=== PATIENT | male | born 1945 | race Caucasian/White ===

== ENCOUNTER 2020-03-30 07:00 | Outpatient (CLI) | payer MEDICARE | END 2020-03-30 23:59 | disposition home or self-care (01) | LOC: LAB.R 07:00 | PROVIDERS: ATTEND Family Medicine | DX: R05 Cough (principal) ==

== ENCOUNTER → 2020-07-19 | Outpatient (CLI) | payer MEDICARE | LOC: LAB.R 08:00 | PROVIDERS: ATTEND Family Medicine | DX: D64.9 Anemia, unspecified (principal) | CPT/HCPCS: 82274 ==

== ENCOUNTER 2020-08-07 18:40 | Outpatient (CLI) | payer MEDICARE | END 2020-08-07 18:41 | disposition short-term general hospital (02) | LOC: EMS 18:40 | PROVIDERS: ATTEND Surgery | DX: I49.9 Cardiac arrhythmia, unspecified (principal) | CPT/HCPCS: A0425; A0427 ==

== ENCOUNTER 2020-08-17 15:25 | Outpatient (CLI) | payer MEDICARE | END 2020-08-17 15:26 | disposition home or self-care (01) | LOC: RT 15:25 | PROVIDERS: ATTEND Family Medicine | DX: R06.02 Shortness of breath (principal) | CPT/HCPCS: 94060 ==

== ENCOUNTER 2020-10-13 16:18 | Outpatient (CLI) | payer MEDICARE ==
--- NOTE | 2020-10-13 17:27 | XRAY Report ---
PROCEDURE: Chest 1 View X-Ray INDICATIONS: CHEST PAIN TECHNIQUE: One view of the chest was acquired. COMPARISON: Chest x-ray 10/14/2015 FINDINGS: Surgical changes and devices: Pacemaker is unchanged. Lungs and pleura: Minimal blunting of the costophrenic angles bilaterally. Mediastinum: Mediastinal contours appear normal. Heart size is enlarged. Bones and chest wall: No suspicious bony lesions. Overlying soft tissues appear unremarkable. IMPRESSION: Minimal bilateral costophrenic angle blunting possibly related to trace effusions. Reviewed by: Silke Valle MD on 10/13/2020 5:26 PM [facility] Approved by: Silke Valle MD on 10/13/2020 5:26 PM [facility] Station ID: [id number]
--- NOTE | 2020-10-13 17:29 | XRAY Report ---
PROCEDURE: Ribs 2 View RT INDICATIONS: CHEST PAIN TECHNIQUE: 2 views of the right ribs were acquired. COMPARISON: Chest x-ray 10/21/2015 FINDINGS: Surgical changes and devices: None. Bones and chest wall: Minimally displaced lateral right 11th rib. No suspicious bony lesions. [place] ing soft tissues appear unremarkable. Lungs and pleura: The visualized lung appears clear. No pleural effusions or pneumothorax are visib le. IMPRESSION: Minimally displaced lateral right 11th rib. Reviewed by: Silke Valle MD on 10/13/2020 5:28 PM PST Approved by: Silke Valle MD on 10/13/2020 5:28 PM PST Station ID: [id number]
--- NOTE | 2020-10-13 17:30 | XRAY Report ---
PROCEDURE: Abdomen 2 View X-Ray INDICATIONS: ABDOMINAL PAIN TECHNIQUE: 1 view of the abdomen were acquired. COMPARISON: Rib x-ray 10/13/2020 FINDINGS: Surgical changes and devices: None. Bowel: No pneumoperitoneum. The bowel gas pattern is normal. Moderate colonic stool. Soft tissues: No masses; visualized solid organ contours appear normal in size. No suspicious abdom inal calcifications. Bones: No suspicious bony abnormalities. Lateral right minimally displaced 11th rib fracture. IMPRESSION: Lateral right minimally displaced 11th rib fracture, better appreciated on rib series x- ray of 10/13/2020. Reviewed by: Silke Valle MD on 10/13/2020 5:29 PM PST Approved by: Silke Valle MD on 10/13/2020 5:29 PM [facility] Station ID: [id number]
== END 2020-10-13 23:59 | disposition home or self-care (01) ==
LOC: DI.N 16:18
PROVIDERS: ATTEND Family Medicine
DX: R07.89 Other chest pain (principal); S22.31XA Fracture of one rib, right side, initial encounter for closed fracture

== ENCOUNTER 2020-11-02 08:00 | Outpatient (CLI) | payer MEDICARE ==
[2020-11-02 21:02] LABS: HGB - HEMOGLOBIN 11.1 g/dL (14.0-18.0); MEAN CORPUSCULAR HEMOGLOBIN 34.2 pg (27.0-31.0); MEAN CORPUSCULAR HGB CONC 31.3 g/dL (32.0-36.0); MEAN CORPUSCULAR VOLUME 109.2 fL (80.0-94.0); RED BLOOD COUNT 3.25 10^6/uL (4.70-6.10); WHITE BLOOD COUNT 4.8 x10^3/uL (4.8-10.8)
[2020-11-02 21:09] LABS: CALCIUM 9.1 mg/dL (8.5-10.3); CREATININE 1.2 mg/dL (0.6-1.2)
== END 2020-11-02 23:59 | disposition home or self-care (01) ==
LOC: LAB.N 08:00
PROVIDERS: ATTEND Nurse Practitioner
DX: R06.02 Shortness of breath (principal); R60.0 Localized edema; Z20.822 Contact with and (suspected) exposure to COVID-19
CPT/HCPCS: 36415; 80048; 83880; 85027; U0004; 85025

== ENCOUNTER 2020-11-02 17:16 | Outpatient (CLI) | payer MEDICARE ==
--- NOTE | 2020-11-03 15:25 | XRAY Report ---
PROCEDURE: Chest 2 View X-Ray INDICATIONS: SHORTNESS OF BREATH TECHNIQUE: 2 view(s) of the chest. COMPARISON: Chest x-ray 10/13/2020 FINDINGS: Surgical changes and devices: None. Lungs and pleura: There is minimal to mild blunting of the costophrenic angles bilaterally, left grea ter than right. Mediastinum: Mediastinal contours are normal. Heart size is enlarged. Bones and chest wall: No suspicious bony abnormalities. Soft tissues appear unremarkable. IMPRESSION: Minimal to mild bilateral effusions, left greater than right. Reviewed by: Silke Valle MD on 11/03/2020 3:23 PM [facility] Approved by: Silke Valle MD on 11/03/2020 3:23 PM PST Station ID: [id number]
== END 2020-11-02 23:59 | disposition home or self-care (01) ==
LOC: DI.N 17:16
PROVIDERS: ATTEND Nurse Practitioner
DX: R06.02 Shortness of breath (principal); J90 Pleural effusion, not elsewhere classified

== ENCOUNTER 2020-11-03 10:46 | Emergency (ER) | payer MEDICARE ==
[2020-11-03] MEDS ORDERED: FUROSEMIDE 40 MG/4 ML VIAL IVP STA (11:22)
--- NOTE | 2020-11-03 11:25 | ED Physician Documentation ---
History of Present Illness - Stated complaint Stated Complaint: R ANKLE WOUND - Chief complaint Chief Complaint: General - History obtained from History obtained from: Patient - History of Present Illness Timing: Other (2 months.) - Additonal information Additional information: 75-year-old male with a pacer in place and on flecainide for atrial fibrillation with pauses as developed increasing exertional dyspnea over the past 2 months.He has been seen by his primary care doctor for the swelling in his legs and he was sent to the emergency department for further evaluation. He was asked to come last night but the patient had refused today they have gotten labs back saying his BNP was elevated over thousand. They have encouraged the patient to come to the emergency department and he has come here with the chief complaint of ankle swelling and now they are weeping fluid as well as exertional dyspnea that has progressively worsened over 2 months. Of time. He is able to walk about 25 feet before getting short of breath.The patient denies illness otherwise stating that he is not coughing anything up he has not had a fever. Review of Systems Constitutional: denies: Fever, Chills, Myalgias Eyes: denies: Decreased vision Ears: denies: Ear pain Nose: denies: Rhinorrhea / runny nose, Congestion Throat: denies: Sore throat Cardiac: reports: Pedal edema. denies: Chest pain / pressure, Palpitations Respiratory: reports: Dyspnea. denies: Cough GI: reports: Abdominal Swelling (in the am). denies: Nausea, Vomiting, Constipation, Diarrhea : denies: Dysuria, Frequency Skin: denies: Rash Musculoskeletal: reports: Extremity swelling. denies: Neck pain, Back pain, Extremity pain Neurologic: denies: Generalized weakness, Focal weakness, Numbness PD PAST MEDICAL HISTORY - Past Medical History Cardiovascular: Hypertension, High cholesterol, Peripheral Vascular Disease, Angina, Atrial fibrillation Endocrine/Autoimmune: HyPOthyroidism : Benign prostate hypertrophy, Kidney stones - Past Surgical History General: Colonoscopy - Present Medications Home Medications: Ambulatory Orders Medication Instructions Recorded Confirmed Flecainide Acetate [Tambocor] 50 mg PO BID 04/28/13 11/03/20 Levothyroxine [Synthroid] 125 mcg PO QDAC 04/28/13 11/03/20 Multivitamin [Multivitamins] 1 each PO DAILY 04/28/13 11/03/20 Simvastatin [Zocor] 20 mg PO DAILY 04/28/13 11/03/20 Azithromycin [Zithromax] 250 mg PO DAILY 11/03/20 11/03/20 Fluticasone/Salmeterol [Advair Hfa 12 gm IH BID 11/03/20 11/03/20 115-21 Mcg Inhaler] Furosemide [Lasix] 40 mg PO DAILY 11/03/20 11/03/20 Metoprolol Succinate [Toprol Xl] 200 mg PO DAILY 11/03/20 11/03/20 Naproxen [EC-Naproxen] 500 mg PO BID 11/03/20 11/03/20 Potassium Chloride 10 meq PO DAILY PM #20 tab 11/03/20 clonazePAM [Clonazepam] 0.5 mg PO TID 11/03/20 11/03/20 - Allergies Allergies/Adverse Reactions: Allergies Allergy/AdvReac Type Severity Reaction Status Date / Time No Known Drug Allergies Allergy Verified 11/03/20 11:05 - Social History Does the pt smoke?: No Smoking Status: Never smoker Does the pt drink ETOH?: Yes Does the pt have substance abuse?: No - Immunizations Immunizations are current?: Yes PD ED PE NORMAL - Vitals Vital signs reviewed: Yes (normal ) - General General: Alert and oriented X 3, No acute distress, Well developed/nourished - HEENT HEENT: Atraumatic, PERRL, EOMI - Neck Neck: Supple, no meningeal sign, No bony TTP - Cardiac Cardiac: RRR, No murmur, Other (distant heart sounds regular rate. ) - Respiratory Respiratory: No respiratory distress, Clear bilaterally - Abdomen Abdomen: Soft, Non tender - Back Back: No CVA TTP, No spinal TTP - Derm Derm: Normal color, Warm and dry - Extremities Extremities: No deformity, Other (There is pitting edema to the LE bilaterally with excoriations especially to the left calf. There are currently no open draining areas. There is currently no weeping ) - Neuro Neuro: Alert and oriented X 3, vehicle body sander 2-12 intact, No motor deficit, No sensory deficit, Normal speech Eye Opening: Spontaneous Motor: Obeys Commands Verbal: Oriented GCS Score: 15 - Psych Psych: Normal mood, Normal affect Results - Vitals Vitals: Vital Signs - 24 hr 11/03/20 11/03/20 11/03/20 11:02 11:32 14:12 Temperature 36.8 C Heart Rate 60 60 60 Respiratory 20 15 22 Rate Blood Pressure 125/74 165/94 H 141/61 H O2 Saturation 97 97 93 Oxygen O2 Source Room air - EKG (time done) 1124 Rate: Rate (enter#) (60) Rhythm: Paced Compare to prior EKG: Old EKG unavailable Computer interpretation: Agree with computer - Labs Labs: Laboratory Tests 11/03/20 11/03/20 11/03/20 11:30 11:30 11:30 WBC 4.6 L RBC 3.14 L Hgb 10.8 L Hct 33.6 L MCV 107.0 H MCH 34.4 H MCHC 32.1 RDW 15.2 H Plt Count 148 MPV 9.9 Neut # (Auto) 3.5 Lymph # (Auto) 0.5 L [place] # (Auto) 0.5 Eos # (Auto) 0.1 Baso # (Auto) 0.0 Absolute Nucleated RBC 0.00 Nucleated RBC % 0.0 Sodium 143 Potassium 4.7 Chloride 109 Carbon Dioxide 25 Anion Gap 9.0 BUN 31 H Creatinine 1.3 H Estimated GFR (MDRD) 54 L Glucose 101 H Calcium 9.2 Total Bilirubin 1.0 AST 21 ALT 25 Alkaline Phosphatase 56 Troponin I High Sens B-Natriuretic Peptide 1066 H Total Protein 5.7 L Albumin 3.6 Globulin 2.1 Albumin/Globulin Ratio 1.7 Lipase 40 Urine Color Urine Clarity Urine pH Ur Specific [place] Urine Protein Urine Glucose (UA) Urine Ketones Urine Occult Blood Urine Nitrite Urine Bilirubin Urine Urobilinogen Ur Leukocyte Esterase Ur Microscopic Review Urine Culture Comments 11/03/20 11/03/20 11:30 12:20 WBC RBC Hgb Hct MCV MCH MCHC RDW Plt Count MPV Neut # (Auto) Lymph # (Auto) [place] # (Auto) Eos # (Auto) Baso # (Auto) Absolute Nucleated RBC Nucleated RBC % Sodium Potassium Chloride Carbon Dioxide Anion Gap BUN Creatinine Estimated GFR (MDRD) Glucose Calcium Total Bilirubin AST ALT Alkaline Phosphatase Troponin I High Sens 6.0 B-Natriuretic Peptide Total Protein Albumin Globulin Albumin/Globulin Ratio Lipase Urine Color YELLOW Urine Clarity CLEAR Urine pH 5.5 Ur Specific [place] 1.020 Urine Protein NEGATIVE Urine Glucose (UA) NEGATIVE Urine Ketones NEGATIVE Urine Occult Blood NEGATIVE Urine Nitrite NEGATIVE Urine Bilirubin NEGATIVE Urine Urobilinogen 0.2 (NORMAL) Ur Leukocyte Esterase NEGATIVE Ur Microscopic Review NOT INDICATED Urine Culture Comments NOT INDICATED - Rads (name of study) chest Radiology: Prelim report reviewed (Impression: Stable appearance of minimal effusions and cardiomegaly. Increased vascular suggestive of edema is prominent cmpared to prior exam. ), EMP read indepedently, See rad report Procedures - IVC sono (time) 1118 Bedside IVC sono: IVC measures (cm) (2.01), IVC collapsed c insp (cm) (2.01), High CVP, Fluid overload PD MEDICAL DECISION MAKING - ED course Complexity details: reviewed old records, reviewed results, re-evaluated patient, considered differential, d/w patient ED course: 75-year-old male with a pacer in place and a history of atrial fibrillation has acute congestive heart failure and he is administered Lasix 40 mg intravenously. I think it is CHF. He does not have ischemia and he responds to diuresis with improvement in breathing and seeing his ankles. He has a script for lasix and I have encouraged him to take this daily and I will provide a corresponding script for some potassium. He will need a follow up in the next week to determine the continued need for the lasix. I suspect he will need this periodically. His diagnostics today were concerning for CHF and there is nothing overwhelming about this to trigger admission. Departure - Departure Disposition: 01 Home, Self Care Clinical Impression: Congestive heart disease Qualifiers: Heart failure type: unspecified Heart failure chronicity: acute Qualified Code(s): I50.9 - Heart failure, unspecified Condition: Stable Instructions: ED CHF General Follow-Up: To Graff MD [Primary Care Provider] - Prescriptions: Potassium Chloride 10 meq PO DAILY PM #20 tab Comments: Today it appears the swelling to your ankles is related to congestive heart failure and it appears you have responded to treatment with the diuretic furosemide. The recommendation is to continue the furosemide daily and in addition take a dose of potassium with each Lasix. You will need to follow-up with your primary care doctor in about 1 week. The expectation is improvement in leg swelling and improvement in your breathing day by day. You will likely need more lasix or your may need to take this intermittently.
[2020-11-03 11:34] LABS: BASOPHILS % (AUTO) 0.9 %; EOSINOPHILS # (AUTO) 0.1 10^3/uL (0.0-0.7); EOSINOPHILS % (AUTO) 1.7 %; HGB - HEMOGLOBIN 10.8 g/dL (14.0-18.0); LYMPHOCYTES # (AUTO) 0.5 10^3/uL (1.5-3.5); LYMPHOCYTES % (AUTO) 11.2 %; MEAN CORPUSCULAR HEMOGLOBIN 34.4 pg (27.0-31.0); MEAN CORPUSCULAR HGB CONC 32.1 g/dL (32.0-36.0); MEAN PLATELET VOLUME 9.9 fL (7.4-11.4); MONOCYTES # (AUTO) 0.5 10^3/uL (0.0-1.0); MONOCYTES % (AUTO) 10.3 %; NEUTROPHILS # (AUTO) 3.5 10^3/uL (1.5-6.6); NEUTROPHILS % (AUTO) 75.5 %; PLT - PLATELET COUNT 148 10^3/uL (130-450); RED BLOOD COUNT 3.14 10^6/uL (4.70-6.10); RED CELL DISTRIBUTION WIDTH 15.2 % (12.0-15.0); WHITE BLOOD COUNT 4.6 x10^3/uL (4.8-10.8)
[2020-11-03 12:00] LABS: ALBUMIN 3.6 g/dL (3.2-5.5); ALBUMIN/GLOBULIN RATIO 1.7 (1.0-2.2); CALCIUM 9.2 mg/dL (8.5-10.3); CREATININE 1.3 mg/dL (0.6-1.2); TOTAL PROTEIN 5.7 g/dL (6.7-8.2)
[2020-11-03 12:29] LABS: BILIRUBIN,URINE NEGATIVE (NEGATIVE); CLARITY,URINE CLEAR (CLEAR); GLUCOSE, URINE (UA) NEGATIVE (NEGATIVE); KETONES,URINE (UA) NEGATIVE (NEGATIVE); LEUKOCYTE ESTERASE, URINE NEGATIVE (NEGATIVE); NITRITE,URINE NEGATIVE (NEGATIVE); OCCULT BLOOD,URINE NEGATIVE (NEGATIVE); PH,URINE 5.5 PH (5.0-7.5); PROTEIN,URINE NEGATIVE (NEGATIVE); UROBILINOGEN,URINE 0.2 (NORMAL) E.U./dL (NORMAL)
--- NOTE | 2020-11-03 13:59 | XRAY Report ---
PROCEDURE: Chest 1 View X-Ray INDICATIONS: soa TECHNIQUE: One view of the chest was acquired. COMPARISON: Chest xray 11/02/20 FINDINGS: Surgical changes and devices: Pacemaker. Lungs and pleura: Minimal to mild bilateral effusions. Increased vascularity more prominent when co mpared to prior exam. Mediastinum: Mediastinal contours appear normal. Heart size is enlarged. Bones and chest wall: No suspicious bony lesions. Overlying soft tissues appear unremarkable. IMPRESSION: Stable appearance of minimal effusions and cardiomegaly. Increased vascular suggestive of edema is pr ominent compared to prior exam. Reviewed by: Silke Valle MD on 11/03/2020 11:59 AM [facility] Approved by: Silke Valle MD on 11/03/2020 11:59 AM PST Station ID: [id number]
[2020-11-03 14:13] VITALS: BP 141/61
== END 2020-11-03 14:48 | disposition home or self-care (01) ==
LOC: ED 10:46
DX: I11.0 Hypertensive heart disease with heart failure (principal); I50.9 Heart failure, unspecified; Z95.0 Presence of cardiac pacemaker; I73.9 Peripheral vascular disease, unspecified
CPT/HCPCS: 36415; 80053; 81001; 81003; 83690; 83880; 84484; 85025; 87086; 93005; 96374; 99284

== ENCOUNTER 2020-11-18 05:44 | Outpatient (CLI) | payer MEDICARE | END 2020-11-18 05:45 | disposition short-term general hospital (02) | LOC: EMS 05:44 | DX: R55 Syncope and collapse (principal) | CPT/HCPCS: A0425; A0429 ==

== ENCOUNTER 2021-01-23 17:02 | Outpatient (CLI) | payer MEDICARE | END 2021-01-23 17:03 | disposition home or self-care (01) | LOC: COV 17:02 | PROVIDERS: ATTEND Internal Medicine Cardiovascular Disease | DX: Z01.812 Encounter for preprocedural laboratory examination (principal); Z20.822 Contact with and (suspected) exposure to COVID-19 ==

== ENCOUNTER 2021-03-25 15:35 | Outpatient (CLI) | payer MEDICARE | END 2021-03-25 15:36 | disposition short-term general hospital (02) | LOC: EMS 15:35 | DX: I49.9 Cardiac arrhythmia, unspecified (principal); R51.9 Headache, unspecified | CPT/HCPCS: A0425; A0427 ==

== ENCOUNTER 2021-04-04 10:43 | Outpatient (CLI) | payer MEDICARE ==
--- NOTE | 2021-04-04 17:17 | XRAY Report ---
PROCEDURE: Shoulder 2 View RT INDICATIONS: CONTUSION OF R SHOULDER TECHNIQUE: 2 views of the shoulder were acquired. COMPARISON: None. FINDINGS: Bones: Mildly displaced fracture of the distal clavicle. Soft tissues: No suspicious soft tissue calcifications. Partially visualized cardiac pacer wires. IMPRESSION: Distal right clavicle fracture. Reviewed by: Adelaida Irizarry MD, PhD on 04/04/2021 5:16 PM PDT Approved by: Adelaida Irizarry MD, PhD on 04/04/2021 5:16 PM PDT Station ID: [id number]
== END 2021-04-04 23:59 | disposition home or self-care (01) ==
LOC: DI.N 10:43
PROVIDERS: ATTEND Physician Assistant Medical
DX: S42.031A Displaced fracture of lateral end of right clavicle, initial encounter for closed fracture (principal)

== ENCOUNTER 2021-04-10 09:20 | Outpatient (CLI) | payer MEDICARE ==
--- NOTE | 2021-04-10 16:43 | XRAY Report ---
PROCEDURE: Clavicle RT INDICATIONS: FX OF R CLAVICLE TECHNIQUE: 2 views of the clavicle were acquired. COMPARISON: Right shoulder x-ray 04/04/2021. FINDINGS: Bones: There is a comminuted fracture of the distal right clavicle redemonstrated. Alignment appears grossly unchanged. There is a small amount of early callus formation. Soft tissues: No suspicious soft tissue calcifications. IMPRESSION: 1. Comminuted fracture of the distal right clavicle appears similar in alignment compared to the prio r study. Reviewed by: Beni Alvarez MD on 04/10/2021 4:42 PM PDT Approved by: Beni Alvarez MD on 04/10/2021 4:42 PM PDT Station ID: [id number]
== END 2021-04-10 23:59 | disposition home or self-care (01) ==
LOC: DI.N 09:20
PROVIDERS: ATTEND Physician Assistant
DX: S42.031D Displaced fracture of lateral end of right clavicle, subsequent encounter for fracture with routine healing (principal)

== ENCOUNTER 2021-04-19 13:39 | Emergency (ER) | payer MEDICARE ==
[2021-04-19 14:10] LABS: BASOPHILS % (AUTO) 0.7 %; EOSINOPHILS # (AUTO) 0.1 10^3/uL (0.0-0.7); EOSINOPHILS % (AUTO) 1.3 %; HCT - HEMATOCRIT 38.7 % (42.0-52.0); HGB - HEMOGLOBIN 12.8 g/dL (14.0-18.0); LYMPHOCYTES # (AUTO) 0.9 10^3/uL (1.5-3.5); LYMPHOCYTES % (AUTO) 16.4 %; MEAN CORPUSCULAR HEMOGLOBIN 34.4 pg (27.0-31.0); MEAN CORPUSCULAR HGB CONC 33.1 g/dL (32.0-36.0); MEAN PLATELET VOLUME 9.8 fL (7.4-11.4); MONOCYTES # (AUTO) 0.6 10^3/uL (0.0-1.0); MONOCYTES % (AUTO) 11.4 %; NEUTROPHILS # (AUTO) 3.9 10^3/uL (1.5-6.6); NEUTROPHILS % (AUTO) 69.8 %; PLT - PLATELET COUNT 216 10^3/uL (130-450); RED BLOOD COUNT 3.72 10^6/uL (4.70-6.10); RED CELL DISTRIBUTION WIDTH 13.3 % (12.0-15.0); WHITE BLOOD COUNT 5.6 x10^3/uL (4.8-10.8)
--- NOTE | 2021-04-19 14:18 | ED Physician Documentation ---
PD HPI ABD PAIN - Stated complaint Stated Complaint: LOWER BACK PX - Chief complaint Chief Complaint: Abd Pain - History obtained from History obtained from: Patient - Additional information Additional information: 75-year-old gentleman with history of recurrent renal colic status post remotely having both basket retrieval and lithotripsy presents with urgent care for same. He declines pain medication here as he has tramadol and Tylenol him and that is sufficient. He did have hematuria in the clinic and has a sensation of incomplete emptying. Review of Systems Ten Systems: 10 systems reviewed and negative Constitutional: reports: Reviewed and negative Throat: reports: Reviewed and negative Cardiac: reports: Reviewed and negative PD PAST MEDICAL HISTORY - Past Medical History Past Medical History: Yes Cardiovascular: Hypertension, High cholesterol, Peripheral Vascular Disease, Angina, Atrial fibrillation Respiratory: None Neuro: Other Endocrine/Autoimmune: HyPOthyroidism GI: None : Benign prostate hypertrophy, Kidney stones Derm: None - Past Surgical History Past Surgical History: Yes General: Colonoscopy Cardiovascular: Pacemaker - Present Medications Home Medications: Ambulatory Orders Medication Instructions Recorded Confirmed Flecainide Acetate [Tambocor] 150 mg PO BID 04/28/13 04/19/21 Simvastatin [Zocor] 20 mg PO DAILY PM 04/28/13 04/19/21 Fluticasone/Salmeterol [Advair Hfa 12 gm IH BID 11/03/20 04/19/21 115-21 Mcg Inhaler] Metoprolol Succinate [Toprol Xl] 200 mg PO DAILY 11/03/20 04/19/21 Potassium Chloride 10 meq PO DAILY PM #20 tab 11/03/20 04/19/21 clonazePAM [Clonazepam] 0.5 mg PO TID PRN 11/03/20 04/19/21 Aspirin [Aspirin EC] 81 mg PO DAILY 04/19/21 04/19/21 Levothyroxine Sodium [Synthroid] 137 mcg PO DAILY 04/19/21 04/19/21 Tamsulosin [Flomax] 0.4 mg PO DAILY 04/19/21 04/19/21 Torsemide 20 mg PO DAILY 04/19/21 04/19/21 traMADol [Ultram] 50 mg PO Q6HR PRN 04/19/21 04/19/21 - Allergies Allergies/Adverse Reactions: Allergies Allergy/AdvReac Type Severity Reaction Status Date / Time No Known Drug Allergies Allergy Verified 08/04/21 13:43 - Social History Does the pt smoke?: No Smoking Status: Never smoker Does the pt drink ETOH?: Yes Does the pt have substance abuse?: No - Immunizations Immunizations are current?: Yes PD ED PE NORMAL - Vitals Vital signs reviewed: Yes - General General: Alert and oriented X 3, No acute distress - HEENT HEENT: PERRL, EOMI - Neck Neck: Supple, no meningeal sign, No bony TTP - Cardiac Cardiac: RRR, No murmur - Respiratory Respiratory: No respiratory distress, Clear bilaterally - Abdomen Abdomen: Normal bowel sounds, Soft, Non tender - Back Back: No CVA TTP, No spinal TTP - Extremities Extremities: No edema, No calf tenderness / cord - Neuro Neuro: Alert and oriented X 3, Normal speech Results - Vitals Vitals: Vital Signs - 24 hr 04/19/21 04/19/21 13:43 14:20 Temperature 36.8 C 97.5 C H Heart Rate 61 60 Respiratory 16 16 Rate Blood Pressure 127/44 L 119/97 H O2 Saturation 98 98 Oxygen O2 Source Room air - Labs Labs: Laboratory Tests 04/19/21 04/19/21 04/19/21 14:05 14:05 14:20 WBC 5.6 RBC 3.72 L Hgb 12.8 L Hct 38.7 L MCV 104.0 H MCH 34.4 H MCHC 33.1 RDW 13.3 Plt Count 216 MPV 9.8 Neut # (Auto) 3.9 Lymph # (Auto) 0.9 L [place] # (Auto) 0.6 Eos # (Auto) 0.1 Baso # (Auto) 0.0 Absolute Nucleated RBC 0.00 Nucleated RBC % 0.0 Sodium 138 Potassium 4.6 Chloride 99 L Carbon Dioxide 30 Anion Gap 9.0 BUN 27 H Creatinine 1.6 H Estimated GFR (MDRD) 42 L Glucose 96 Calcium 9.6 Urine Color YELLOW Urine Clarity CLEAR Urine pH 7.0 Ur Specific [place] 1.010 Urine Protein NEGATIVE Urine Glucose (UA) NEGATIVE Urine Ketones NEGATIVE Urine Occult Blood MODERATE H Urine Nitrite NEGATIVE Urine Bilirubin NEGATIVE Urine Urobilinogen 0.2 (NORMAL) Ur Leukocyte Esterase NEGATIVE Urine RBC 6-10 H Urine WBC 0-3 Ur Squamous Epith Cells RARE Squamous Urine Bacteria None Seen Ur Microscopic Review INDICATED Urine Culture Comments NOT INDICATED PD MEDICAL DECISION MAKING - ED course ED course: 75-year-old gentleman with history of renal colic and other comorbidities presents with light right low back pain. He declined prescription narcotics he re. He looks comfortable. No evidence of shingles at this time. UA with a small amount of blood. CT without pertinent positive findings. Departure - Departure Disposition: 01 Home, Self Care Clinical Impression: Back pain Qualifiers: Back pain location: low back pain Chronicity: acute Back pain laterality: right Sciatica presence: without sciatica Qualified Code(s): M54.5 - Low back pain Condition: Good Record reviewed to determine appropriate education?: Yes Instructions: ED Low Back Pain Injury Comments: Call your doctor to arrange a follow-up appointment, make the next available appointment. In the interim, return anytime if worse or if new symptoms develop.
[2021-04-19 14:20] LABS: CALCIUM 9.6 mg/dL (8.5-10.3); CREATININE 1.6 mg/dL (0.6-1.2); POTASSIUM 4.6 mmol/L (3.5-5.0)
[2021-04-19 14:21] VITALS: BP 119/97
[2021-04-19 14:33] LABS: BILIRUBIN,URINE NEGATIVE (NEGATIVE); GLUCOSE, URINE (UA) NEGATIVE (NEGATIVE); KETONES,URINE (UA) NEGATIVE (NEGATIVE); LEUKOCYTE ESTERASE, URINE NEGATIVE (NEGATIVE); NITRITE,URINE NEGATIVE (NEGATIVE); OCCULT BLOOD,URINE MODERATE (NEGATIVE); PROTEIN,URINE NEGATIVE (NEGATIVE); UROBILINOGEN,URINE 0.2 (NORMAL) E.U./dL (NORMAL)
[2021-04-19 14:43] LABS: CLARITY,URINE CLEAR (CLEAR)
[2021-04-19 14:55] LABS: BACTERIA,URINE None Seen /HPF (None Seen); SQUAMOUS EPITHELIAL CELL,UR RARE Squamous (<= Few); WBC,URINE 0-3 /HPF (0-3)
--- NOTE | 2021-04-19 15:04 | CT Report ---
PROCEDURE: Abdomen/Pelvis WO INDICATIONS: R flank pain TECHNIQUE: Noncontrast 5 mm thick sections acquired from the diaphragms to the symphysis. 5 mm coronal and sagi ttal reformats were then performed. For radiation dose reduction, the following was used: automated exposure control, adjustment of mA and/or kV according to patient size. COMPARISON: None. FINDINGS: Image quality: Excellent. ABDOMEN: Lung bases: Lung bases are clear. Heart size is normal. Cardiac pacer leads noted. 3.3 x 2.5 x 2.8 cm partially calcified left pericardial cyst. Solid organs: Liver and spleen are normal in size. 2.1 cm hypoattenuating lesion noted in the left l obe liver which likely represents a cyst. Gallbladder is within normal limits. Pancreas is normal in contours. No adrenal nodules. Kidneys are normal in size. 3.0 and 3.5 cm left renal cysts. 6 mm no nobstructing stone of the lower pole of the left kidney. 1 mm and 1-2 mm nonobstructing stones in the lower pole of the left kidney. No hydronephrosis. Peritoneum and bowel: Unenhanced bowel loops demonstrate normal wall thickness and caliber. Numerous colonic diverticuli without evidence of diverticulitis. No free fluid or air. Appendix is normal. Nodes and vessels: No retroperitoneal or mesenteric adenopathy by size criteria. Aorta and inferior vena cava are normal in caliber. Scattered atherosclerotic calcifications are noted in the abdominal and pelvic vasculature. Miscellaneous: No ventral hernias. PELVIS: Genitourinary: Bladder wall thickness is normal. Miscellaneous: No inguinal adenopathy. Small fat-containing right inguinal hernia. Bones: No suspicious bony lesions. No vertebral body compression fractures. Spine degenerative disc disease and facet arthropathy are noted. IMPRESSION: 1. Nonobstructing left renal stones. 2. No right-sided renal stone. 3. No hydronephrosis. 4. Colonic diverticulosis without evidence of diverticulitis. 5. Appendix is normal. 6. No free fluid or free air. 7. No dilated loops of bowel. Reviewed by: Adelaida Irizarry MD, PhD on 04/19/2021 3:03 PM PDT Approved by: Adelaida Irizarry MD, PhD on 04/19/2021 3:03 PM PDT Station ID: [id number]
== END 2021-04-19 15:18 | disposition home or self-care (01) ==
LOC: ED 13:39
DX: M54.5 Low back pain (principal); N20.0 Calculus of kidney; R31.9 Hematuria, unspecified; Z87.442 Personal history of urinary calculi; I10 Essential (primary) hypertension; Z79.82 Long term (current) use of aspirin
CPT/HCPCS: 36415; 80048; 81001; 81003; 85025; 87086; 99283; 99284

== ENCOUNTER 2021-05-02 15:15 | Outpatient (CLI) | payer MEDICARE ==
--- NOTE | 2021-05-02 16:49 | XRAY Report ---
PROCEDURE: Clavicle RT INDICATIONS: DISPLACED LATERAL END OF R CLAVICLE TECHNIQUE: 2 views of the clavicle were acquired. COMPARISON: Prior clavicular series dated 04/10/2021 FINDINGS: Bones: No significant change in mildly displaced, comminuted distal right clavicular shaft fracture. Acromioclavicular joint is intact.. No suspicious bony lesions. Soft tissues: No suspicious soft tissue calcifications. IMPRESSION: No significant change in appearance or alignment of mildly displaced distal right clavicular shaft fr acture. Reviewed by: VIPUL Baker on 05/02/2021 4:48 PM PDT Approved by: Dexter Wooten on 05/02/2021 4:48 PM PDT Station ID: [id number]
== END 2021-05-02 23:59 | disposition home or self-care (01) ==
LOC: DI.N 15:15
PROVIDERS: ATTEND Physician Assistant
DX: S42.031A Displaced fracture of lateral end of right clavicle, initial encounter for closed fracture (principal)

== ENCOUNTER 2021-05-16 17:23 | Emergency (ER) | payer MEDICARE ==
[2021-05-16 17:54] VITALS: BP 124/64
--- NOTE | 2021-05-16 18:35 | ED Physician Documentation ---
PD HPI BACK PAIN - Stated complaint Stated Complaint: BACK/SIDE PX - Chief complaint Chief Complaint: Abd Pain PD PAST MEDICAL HISTORY - Past Medical History Cardiovascular: Hypertension, High cholesterol, Peripheral Vascular Disease, Angina, Atrial fibrillation Respiratory: None Neuro: Other Endocrine/Autoimmune: HyPOthyroidism GI: None : Benign prostate hypertrophy, Kidney stones Derm: None - Past Surgical History Past Surgical History: Yes General: Colonoscopy Cardiovascular: Pacemaker - Present Medications Home Medications: Ambulatory Orders Medication Instructions Recorded Confirmed Flecainide Acetate [Tambocor] 150 mg PO BID 04/28/13 04/19/21 Simvastatin [Zocor] 20 mg PO DAILY PM 04/28/13 04/19/21 Fluticasone/Salmeterol [Advair Hfa 12 gm IH BID 11/03/20 04/19/21 115-21 Mcg Inhaler] Metoprolol Succinate [Toprol Xl] 200 mg PO DAILY 11/03/20 04/19/21 Potassium Chloride 10 meq PO DAILY PM #20 tab 11/03/20 04/19/21 clonazePAM [Clonazepam] 0.5 mg PO TID PRN 11/03/20 04/19/21 Aspirin [Aspirin EC] 81 mg PO DAILY 04/19/21 04/19/21 Levothyroxine Sodium [Synthroid] 137 mcg PO DAILY 04/19/21 04/19/21 Tamsulosin [Flomax] 0.4 mg PO DAILY 04/19/21 04/19/21 Torsemide 20 mg PO DAILY 04/19/21 04/19/21 traMADol [Ultram] 50 mg PO Q6HR PRN 04/19/21 04/19/21 - Allergies Allergies/Adverse Reactions: Allergies Allergy/AdvReac Type Severity Reaction Status Date / Time No Known Drug Allergies Allergy Verified 05/16/21 17:51 - Social History Does the pt smoke?: No Smoking Status: Never smoker Does the pt drink ETOH?: Yes Does the pt have substance abuse?: No - Immunizations Immunizations are current?: Yes Results - Vitals Vitals: Vital Signs - 24 hr 05/16/21 17:51 Temperature 36.9 C Heart Rate 59 L Respiratory 16 Rate Blood Pressure 124/64 O2 Saturation 97 Oxygen O2 Source Room air
[2021-05-16 18:43] LABS: BASOPHILS % (AUTO) 0.7 %; EOSINOPHILS % (AUTO) 0.6 %; HCT - HEMATOCRIT 34.7 % (42.0-52.0); HGB - HEMOGLOBIN 11.5 g/dL (14.0-18.0); LYMPHOCYTES # (AUTO) 0.8 10^3/uL (1.5-3.5); LYMPHOCYTES % (AUTO) 15.1 %; MEAN CORPUSCULAR HEMOGLOBIN 34.8 pg (27.0-31.0); MEAN CORPUSCULAR HGB CONC 33.1 g/dL (32.0-36.0); MEAN CORPUSCULAR VOLUME 105.2 fL (80.0-94.0); MEAN PLATELET VOLUME 9.6 fL (7.4-11.4); MONOCYTES # (AUTO) 0.6 10^3/uL (0.0-1.0); MONOCYTES % (AUTO) 10.8 %; NEUTROPHILS # (AUTO) 3.9 10^3/uL (1.5-6.6); NEUTROPHILS % (AUTO) 72.6 %; PLT - PLATELET COUNT 185 10^3/uL (130-450); RED CELL DISTRIBUTION WIDTH 14.4 % (12.0-15.0); WHITE BLOOD COUNT 5.4 x10^3/uL (4.8-10.8)
[2021-05-16 18:57] LABS: ALBUMIN 4.1 g/dL (3.2-5.5); ALBUMIN/GLOBULIN RATIO 1.6 (1.0-2.2); BILIRUBIN,TOTAL 2.2 mg/dL (0.2-1.0); CALCIUM 8.9 mg/dL (8.5-10.3); CREATININE 1.5 mg/dL (0.6-1.2); POTASSIUM 4.3 mmol/L (3.5-5.0); TOTAL PROTEIN 6.6 g/dL (6.7-8.2)
--- NOTE | 2021-05-16 19:18 | ED Physician Documentation ---
History of Present Illness - Stated complaint Stated Complaint: BACK/SIDE PX - Chief complaint Chief Complaint: Abd Pain - Additonal information Additional information: 75-year-old male comes to the emergency department for evaluation of acute right low back pain that he noted this morning when he was laying in bed. He reports that it radiated to the right leg. He is has a history of ureter colic and states that this felt similar but he has never had radiation to the leg. He is denying any testicular pain dysuria or hematuria. Patient reports that he was lifting heavy boxes yesterday and wonders if he may have simply strained his back. In the past he has required a lithotripsy as well as stenting for his renal colic. Seen about 1 month ago found to have left-sided kidney stones but none in the right. At that time there were no findings of hydronephrosis. Review of Systems Constitutional: denies: Fever, Chills Eyes: reports: Reviewed and negative Ears: reports: Reviewed and negative Nose: reports: Reviewed and negative Throat: reports: Reviewed and negative Cardiac: reports: Reviewed and negative Respiratory: reports: Reviewed and negative GI: reports: Abdominal Pain : reports: Reviewed and negative Skin: reports: Reviewed and negative Musculoskeletal: reports: Back pain Neurologic: reports: Reviewed and negative PD PAST MEDICAL HISTORY - Past Medical History Past Medical History: Yes Cardiovascular: Hypertension, High cholesterol, Peripheral Vascular Disease, Angina, Atrial fibrillation Respiratory: None Neuro: Other Endocrine/Autoimmune: HyPOthyroidism GI: None : Benign prostate hypertrophy, Kidney stones Derm: None - Past Surgical History Past Surgical History: Yes General: Colonoscopy Cardiovascular: Pacemaker - Present Medications Home Medications: Ambulatory Orders Medication Instructions Recorded Confirmed Flecainide Acetate [Tambocor] 150 mg PO BID 04/28/13 04/19/21 Simvastatin [Zocor] 20 mg PO DAILY PM 04/28/13 04/19/21 Fluticasone/Salmeterol [Advair Hfa 12 gm IH BID 11/03/20 04/19/21 115-21 Mcg Inhaler] Metoprolol Succinate [Toprol Xl] 200 mg PO DAILY 11/03/20 04/19/21 Potassium Chloride 10 meq PO DAILY PM #20 tab 11/03/20 04/19/21 clonazePAM [Clonazepam] 0.5 mg PO TID PRN 11/03/20 04/19/21 Aspirin [Aspirin EC] 81 mg PO DAILY 04/19/21 04/19/21 Levothyroxine Sodium [Synthroid] 137 mcg PO DAILY 04/19/21 04/19/21 Tamsulosin [Flomax] 0.4 mg PO DAILY 04/19/21 04/19/21 Torsemide 20 mg PO DAILY 04/19/21 04/19/21 traMADol [Ultram] 50 mg PO Q6HR PRN 04/19/21 04/19/21 - Allergies Allergies/Adverse Reactions: Allergies Allergy/AdvReac Type Severity Reaction Status Date / Time No Known Drug Allergies Allergy Verified 05/16/21 17:51 - Social History Does the pt smoke?: No Smoking Status: Never smoker Does the pt drink ETOH?: Yes Does the pt have substance abuse?: No - Immunizations Immunizations are current?: Yes - POLST Patient has POLST: No PD ED PE EXPANDED - General General: Alert, No acute distress, Well developed/nourished - Neck Neck: Supple w/out meningeal sx. No: Adenopathy - Cardiac Cardiac: Regular Rate, Radial strong equal, Pedal strong equal, Cap refill < 2 s ec - Respiratory Respiratory: Clear to ausultation soumya. No: Distress, Labored - Abdomen Abdomen: Normal Bowel sounds. No: Tender to palpation - Back Back: Normal exam, Soft tissue tenderness (right lower paraspinous Tenderness. Mildly reduced forward flexion of the lumbar spine but unassisted gait. Motor strength 5 of 5. 2+ patellar reflexes bilaterally.). No: Normal ROM, Vertebral tenderness, Straight leg raise + R, CVA TTP right, CVA TTP left - Extremities Extremities: Normal. No: Deformity, Tenderness - Neuro Neuro: Alert and Oriented X 3, CNII-XII intact - GCS Eye Opening: Spontaneous Motor: Obeys Commands Verbal: Oriented Total: 15 Results - Vitals Vitals: Vital Signs - 24 hr 05/16/21 17:51 Temperature 36.9 C Heart Rate 59 L Respiratory 16 Rate Blood Pressure 124/64 O2 Saturation 97 Oxygen O2 Source Room air - Labs Labs: Laboratory Tests 05/16/21 05/16/21 05/16/21 17:40 18:30 18:30 WBC 5.4 RBC 3.30 L Hgb 11.5 L Hct 34.7 L MCV 105.2 H MCH 34.8 H MCHC 33.1 RDW 14.4 Plt Count 185 MPV 9.6 Neut # (Auto) 3.9 Lymph # (Auto) 0.8 L [place] # (Auto) 0.6 Eos # (Auto) 0.0 Baso # (Auto) 0.0 Absolute Nucleated RBC 0.00 Nucleated RBC % 0.0 Sodium 139 Potassium 4.3 Chloride 100 L Carbon Dioxide 29 Anion Gap 10.0 BUN 29 H Creatinine 1.5 H Estimated GFR (MDRD) 45 L Glucose 96 Calcium 8.9 Total Bilirubin 2.2 H AST 16 ALT 19 Alkaline Phosphatase 68 Total Protein 6.6 L Albumin 4.1 Globulin 2.5 Albumin/Globulin Ratio 1.6 Lipase 26 Urine Color YELLOW Urine Clarity CLEAR Urine pH 5.0 Ur Specific [place] 1.010 Urine Protein NEGATIVE Urine Glucose (UA) NEGATIVE Urine Ketones NEGATIVE Urine Occult Blood NEGATIVE Urine Nitrite NEGATIVE Urine Bilirubin NEGATIVE Urine Urobilinogen 0.2 (NORMAL) Ur Leukocyte Esterase NEGATIVE Ur Microscopic Review NOT INDICATED Urine Culture Comments NOT INDICATED PD MEDICAL DECISION MAKING - ED course Complexity details: reviewed results, d/w patient, d/w family ED course: 75-year-old male presents emergency department for evaluation of acute right low back pain that began this morning when he woke up. He does report a history of renal colic however this feels different. He did do some heavy lifting last night. He does not have any back pain red flags such as fevers, saddle anesthesia or loss of bowel or bladder function. He is however 75 years of age. His back exam however is relatively benign. He was seen in the ER just over a month ago recently and did have a CT that showed left-sided renal stones but none on the right and no hydronephrosis. Screening labs today show preserved renal function at baseline with mild chronic kidney disease. No leukocytosis. Screening labs today do show that he has no findings of infection in the urine and no hematuria. I did offer this gentleman IV fluids but he declined that. I did offer further evaluation and testing with a form of imaging but he declines at at this time. He is improved after course of Dilaudid and he will be discharged home. Emergent return precautions were discussed. Departure - Departure Disposition: 01 Home, Self Care Clinical Impression: Right low back pain Qualifiers: Chronicity: acute Sciatica presence: without sciatica Qualified Code(s): M54.5 - Low back pain Condition: Stable Record reviewed to determine appropriate education?: Yes Comments: Philip elliott are seen in the emergency department for right sided low back pain. Your screening labs do not show any findings of infection in the urine and there is no blood in it. We discussed the possibility that this back pain could be due to to history of kidney stones but a CAT scan done recently did not show stones in the right kidney and there was no swelling in it. Given that your symptoms have gotten better with medication here in the ER I feel it is appropriate if we do no further imaging however if your symptoms are worsening at home, you develop fevers have uncontrolled vomiting or worsening pain then please return immediately to the ER. As we discussed I suspect that the cause of your low back pain may be strain from heavy lifting yesterday.
[2021-05-16 19:21] LABS: BILIRUBIN,URINE NEGATIVE (NEGATIVE); GLUCOSE, URINE (UA) NEGATIVE (NEGATIVE); KETONES,URINE (UA) NEGATIVE (NEGATIVE); LEUKOCYTE ESTERASE, URINE NEGATIVE (NEGATIVE); NITRITE,URINE NEGATIVE (NEGATIVE); OCCULT BLOOD,URINE NEGATIVE (NEGATIVE); PROTEIN,URINE NEGATIVE (NEGATIVE); UROBILINOGEN,URINE 0.2 (NORMAL) E.U./dL (NORMAL)
[2021-05-16 19:22] LABS: CLARITY,URINE CLEAR (CLEAR)
[2021-05-16] MEDS ORDERED: KETOROLAC 30 MG/ML VIAL IVP STA (19:27)
[2021-05-16] MEDS ORDERED: SODIUM CHLORIDE 0.9% 1,000 ML IV STA (19:27)
== END 2021-05-16 20:35 | disposition home or self-care (01) ==
LOC: ED 17:23
DX: M54.5 Low back pain (principal); I12.9 Hypertensive chronic kidney disease with stage 1 through stage 4 chronic kidney disease, or unspecified chronic kidney disease; N18.9 Chronic kidney disease, unspecified; Z87.442 Personal history of urinary calculi; Z79.82 Long term (current) use of aspirin
CPT/HCPCS: 36415; 80053; 81001; 81003; 83690; 85025; 87086; 96374; 99282

== ENCOUNTER 2021-07-06 13:01 | Outpatient (CLI) | payer MEDICARE ==
--- NOTE | 2021-07-06 13:58 | XRAY Report ---
PROCEDURE: Clavicle RT INDICATIONS: FRACTURE OF LATERAL END OF RT CLAVICLE TECHNIQUE: 2 views of the clavicle were acquired. COMPARISON: None. FINDINGS: Bones: There is a healing fracture of the right distal clavicle. No fractures or dislocations. No s uspicious bony lesions. Soft tissues: No suspicious soft tissue calcifications. IMPRESSION: Healing right distal clavicle fracture. Reviewed by: Dexter Wooten on 07/06/2021 1:56 PM PDT Approved by: Dexter Wooten on 07/06/2021 1:56 PM PDT Station ID: [id number]
== END 2021-07-06 13:02 | disposition home or self-care (01) ==
LOC: DI.N 13:01
PROVIDERS: ATTEND Physician Assistant
DX: S42.031D Displaced fracture of lateral end of right clavicle, subsequent encounter for fracture with routine healing (principal)

== ENCOUNTER 2021-08-11 08:00 | Outpatient (CLI) | payer MEDICARE ==
[2021-08-11 17:40] LABS: CALCIUM 8.7 mg/dL (8.5-10.3); CREATININE 1.4 mg/dL (0.6-1.2); POTASSIUM 3.9 mmol/L (3.5-5.0)
== END 2021-08-11 23:59 | disposition home or self-care (01) ==
LOC: LAB.WCP 08:00
PROVIDERS: ATTEND Family Medicine
DX: I50.9 Heart failure, unspecified (principal)
CPT/HCPCS: 36415; 80048

== ENCOUNTER 2021-08-25 08:00 | Outpatient (CLI) | payer MEDICARE ==
[2021-08-25 18:19] LABS: CREATININE 1.2 mg/dL (0.6-1.2); POTASSIUM 4.2 mmol/L (3.5-5.0)
== END 2021-08-25 23:59 | disposition home or self-care (01) ==
LOC: LAB.WCP 08:00
PROVIDERS: ATTEND Internal Medicine
DX: I48.0 Paroxysmal atrial fibrillation (principal)
CPT/HCPCS: 36415; 80048

== ENCOUNTER 2021-10-23 21:00 | Emergency (ER) | payer MEDICARE ==
[2021-10-23 21:39] LABS: BASOPHILS # (AUTO) 0.1 10^3/uL (0.0-0.1); BASOPHILS % (AUTO) 0.6 %; EOSINOPHILS # (AUTO) 0.2 10^3/uL (0.0-0.7); EOSINOPHILS % (AUTO) 2.2 %; HCT - HEMATOCRIT 37.6 % (42.0-52.0); HGB - HEMOGLOBIN 13.1 g/dL (14.0-18.0); LYMPHOCYTES # (AUTO) 1.2 10^3/uL (1.5-3.5); LYMPHOCYTES % (AUTO) 15.6 %; MEAN CORPUSCULAR HEMOGLOBIN 34.7 pg (27.0-31.0); MEAN CORPUSCULAR HGB CONC 34.8 g/dL (32.0-36.0); MEAN CORPUSCULAR VOLUME 99.7 fL (80.0-94.0); MONOCYTES # (AUTO) 0.9 10^3/uL (0.0-1.0); MONOCYTES % (AUTO) 11.7 %; NEUTROPHILS # (AUTO) 5.4 10^3/uL (1.5-6.6); NEUTROPHILS % (AUTO) 69.6 %; PLT - PLATELET COUNT 223 10^3/uL (130-450); RED BLOOD COUNT 3.77 10^6/uL (4.70-6.10); WHITE BLOOD COUNT 7.8 x10^3/uL (4.8-10.8)
[2021-10-23 21:52] LABS: ALBUMIN 4.4 g/dL (3.2-5.5); ALBUMIN/GLOBULIN RATIO 1.5 (1.0-2.2); BILIRUBIN,TOTAL 1.4 mg/dL (0.2-1.0); CALCIUM 9.2 mg/dL (8.5-10.3); CREATININE 1.3 mg/dL (0.6-1.2); POTASSIUM 4.2 mmol/L (3.5-5.0); TOTAL PROTEIN 7.4 g/dL (6.7-8.2)
[2021-10-23] MEDS ORDERED: SODIUM CHLORIDE 0.9% 250 ML IV STA (22:28)
[2021-10-23] MEDS ORDERED: MORPHINE 2 MG/ML CARPUJECT IVP STA ×2 (22:29→22:47)
[2021-10-23] MEDS ORDERED: ONDANSETRON 4 MG/2 ML VIAL IVP STA (22:29)
--- NOTE | 2021-10-23 22:52 | XRAY Report ---
PROCEDURE: Chest 1 View X-Ray INDICATIONS: Chest pain. TECHNIQUE: One view of the chest was acquired. COMPARISON: None FINDINGS: Surgical changes and devices: Left chest wall pacer with intact leads. Lungs and pleura: No pleural effusions or pneumothorax. Lungs are clear. Blunting of the left co stophrenic angle is chronic. Mediastinum: Mediastinal contours appear normal. Heart size is normal. Bones and chest wall: No suspicious bony lesions. Overlying soft tissues appear unremarkable. IMPRESSION: No acute cardiopulmonary abnormality. Reviewed by: Dexter Wooten on 10/23/2021 10:51 PM [facility] Approved by: Dexter Wooten on 10/23/2021 10:51 PM [facility] Station ID: [id number]
[2021-10-23 23:05] LABS: BILIRUBIN,URINE NEGATIVE (NEGATIVE); GLUCOSE, URINE (UA) NEGATIVE (NEGATIVE); KETONES,URINE (UA) 40 mg/dL (NEGATIVE); LEUKOCYTE ESTERASE, URINE NEGATIVE (NEGATIVE); NITRITE,URINE NEGATIVE (NEGATIVE); OCCULT BLOOD,URINE NEGATIVE (NEGATIVE); PH,URINE 8.5 PH (5.0-7.5); PROTEIN,URINE TRACE mg/dL (NEGATIVE); UROBILINOGEN,URINE 1 (NORMAL) E.U./dL (NORMAL)
[2021-10-23 23:08] LABS: CLARITY,URINE CLEAR (CLEAR)
--- NOTE | 2021-10-23 23:26 | ED Physician Documentation ---
History of Present Illness - Stated complaint Stated Complaint: FLANK PAIN - Chief complaint Chief Complaint: Abd Pain - History obtained from History obtained from: Patient - Additonal information Additional information: 76yM with pmh ckd, renal stones, chf, pacemaker, p/w BL flank pain X 1 day, sharp, moderate severity, constant, radiating to front, a/w nbnb n/v. patient states it feels like prior kidney stones but on both sides rather than one. denies hx of AAA. during his stay in the ED patient also developed L sided substernal nonradiating aching chest pain that then resolved. nonpleuritic. denies cough, soa, fever. normal BM in the last 24 h. passing normal flatus. no hx abdominal surgeries per his report. Review of Systems Ten Systems: 10 systems reviewed and negative Constitutional: denies: Fever, Chills Cardiac: reports: Chest pain / pressure. denies: Palpitations Respiratory: denies: Dyspnea, Cough GI: reports: Abdominal Pain, Nausea, Vomiting. denies: Constipation, Diarrhea, Bloody / black stool : denies: Dysuria, Frequency, Hematuria Skin: denies: Rash Musculoskeletal: reports: Back pain PD PAST MEDICAL HISTORY - Past Medical History Past Medical History: Yes Cardiovascular: Hypertension, High cholesterol, Peripheral Vascular Disease, Angina, Atrial fibrillation Respiratory: None Neuro: Other Endocrine/Autoimmune: HyPOthyroidism GI: None : Benign prostate hypertrophy, Kidney stones Derm: None - Past Surgical History Past Surgical History: Yes General: Colonoscopy Cardiovascular: Pacemaker - Present Medications Home Medications: Ambulatory Orders Medication Instructions Recorded Confirmed Flecainide Acetate [Tambocor] 150 mg PO BID 04/28/13 10/23/21 Simvastatin [Zocor] 20 mg PO DAILY PM 04/28/13 10/23/21 Fluticasone/Salmeterol [Advair Hfa 12 gm IH BID 11/03/20 10/23/21 115-21 Mcg Inhaler] Metoprolol Succinate [Toprol Xl] 200 mg PO DAILY 11/03/20 10/23/21 Potassium Chloride 10 meq PO DAILY PM #20 tab 11/03/20 10/23/21 clonazePAM [Clonazepam] 0.5 mg PO TID PRN 11/03/20 10/23/21 Aspirin [Aspirin EC] 81 mg PO DAILY 04/19/21 10/23/21 Levothyroxine Sodium [Synthroid] 137 mcg PO DAILY 04/19/21 10/23/21 Tamsulosin [Flomax] 0.4 mg PO DAILY 04/19/21 10/23/21 Torsemide 20 mg PO DAILY 04/19/21 10/23/21 traMADol [Ultram] 50 mg PO Q6HR PRN 04/19/21 10/23/21 Ondansetron Odt [Zofran Odt] 4 mg TL Q6H PRN #10 tablet 10/24/21 - Allergies Allergies/Adverse Reactions: Allergies Allergy/AdvReac Type Severity Reaction Status Date / Time No Known Drug Allergies Allergy Verified 05/16/21 17:51 - Social History Does the pt smoke?: No Smoking Status: Never smoker Does the pt drink ETOH?: Yes Does the pt have substance abuse?: No - Immunizations Immunizations are current?: Yes - POLST Patient has POLST: No PD ED PE NORMAL - Vitals Vital signs reviewed: Yes - General General: Alert and oriented X 3, No acute distress, Well developed/nourished - HEENT HEENT: Atraumatic, PERRL, EOMI - Neck Neck: Supple, no meningeal sign - Cardiac Cardiac: RRR - Respiratory Respiratory: No respiratory distress, Clear bilaterally - Abdomen Abdomen: Non tender, Non distended - Back Back: Other (BL CVA and lower back ttp) - Derm Derm: Normal color, Warm and dry - Extremities Extremities: No edema - Neuro Neuro: Alert and oriented X 3, No motor deficit, No sensory deficit - Psych Psych: Normal mood, Normal affect Results - Vitals Vitals: Vital Signs - 24 hr 10/23/21 10/24/21 10/24/21 21:12 01:28 02:13 Temperature 36.1 C L 36.4 C L 36.5 C Heart Rate 61 60 68 Respiratory 20 15 15 Rate Blood Pressure 121/75 159/84 H 141/81 H O2 Saturation 98 97 98 Oxygen O2 Source Nasal cannula - EKG (time done) 2155 Rate: Rate (enter#) (60) Rhythm: NSR QRS: LVH Ischemia: Other (old ischemic changes in inferior leads) - Labs Labs: Laboratory Tests 10/23/21 10/23/21 10/23/21 21:34 21:34 21:34 WBC 7.8 RBC 3.77 L Hgb 13.1 L Hct 37.6 L MCV 99.7 H MCH 34.7 H MCHC 34.8 RDW 14.0 Plt Count 223 MPV 10.0 Neut # (Auto) 5.4 Lymph # (Auto) 1.2 L [place] # (Auto) 0.9 Eos # (Auto) 0.2 Baso # (Auto) 0.1 Absolute Nucleated RBC 0.00 Nucleated RBC % 0.0 Sodium 133 L Potassium 4.2 Chloride 96 L Carbon Dioxide 26 Anion Gap 11.0 BUN 29 H Creatinine 1.3 H Estimated GFR (MDRD) 53 L Glucose 114 H Calcium 9.2 Total Bilirubin 1.4 H AST 21 ALT 25 Alkaline Phosphatase 78 Troponin I High Sens 7.0 Total Protein 7.4 Albumin 4.4 Globulin 3.0 Albumin/Globulin Ratio 1.5 Lipase 42 Urine Color Urine Clarity Urine pH Ur Specific [place] Urine Protein Urine Glucose (UA) Urine Ketones Urine Occult Blood Urine Nitrite Urine Bilirubin Urine Urobilinogen Ur Leukocyte Esterase Ur Microscopic Review Urine Culture Comments Nasal Adenovirus (PCR) Nasal B. parapertussis DNA (PCR) Nasal Coronavir 229E PCR Nasal Coronavir HKU1 PCR Nasal Coronavir NL63 PCR Nasal Coronavir OC43 PCR Nasal Enterovir/Rhinovir PCR Nasal Influenza B PCR Nasal Influenza A PCR Nasal Parainfluen 1 PCR Nasal Parainfluen 2 PCR Nasal Parainfluen 3 PCR Nasal Parainfluen 4 PCR Nasal RSV (PCR) Nasal B.pertussis DNA PCR Nasal C.pneumoniae (PCR) [place] Human Metapneumo PCR Nasal M.pneumoniae (PCR) Nasal SARS-CoV-2 (PCR) 10/23/21 10/23/21 22:57 22:59 WBC RBC Hgb Hct MCV MCH MCHC RDW Plt Count MPV Neut # (Auto) Lymph # (Auto) [place] # (Auto) Eos # (Auto) Baso # (Auto) Absolute Nucleated RBC Nucleated RBC % Sodium Potassium Chloride Carbon Dioxide Anion Gap BUN Creatinine Estimated GFR (MDRD) Glucose Calcium Total Bilirubin AST ALT Alkaline Phosphatase Troponin I High Sens Total Protein Albumin Globulin Albumin/Globulin Ratio Lipase Urine Color YELLOW Urine Clarity CLEAR Urine pH 8.5 H Ur Specific [place] 1.015 Urine Protein TRACE Urine Glucose (UA) NEGATIVE Urine Ketones 40 H Urine Occult Blood NEGATIVE Urine Nitrite NEGATIVE Urine Bilirubin NEGATIVE Urine Urobilinogen 1 (NORMAL) Ur Leukocyte Esterase NEGATIVE Ur Microscopic Review NOT INDICATED Urine Culture Comments NOT INDICATED Nasal Adenovirus (PCR) NOT DETECTED Nasal B. parapertussis DNA (PCR) NOT DETECTED Nasal Coronavir 229E PCR NOT DETECTED Nasal Coronavir HKU1 PCR NOT DETECTED Nasal Coronavir NL63 PCR NOT DETECTED Nasal Coronavir OC43 PCR NOT DETECTED Nasal Enterovir/Rhinovir PCR NOT DETECTED Nasal Influenza B PCR NOT DETECTED Nasal Influenza A PCR NOT DETECTED Nasal Parainfluen 1 PCR NOT DETECTED Nasal Parainfluen 2 PCR NOT DETECTED Nasal Parainfluen 3 PCR NOT DETECTED Nasal Parainfluen 4 PCR NOT DETECTED Nasal RSV (PCR) NOT DETECTED Nasal B.pertussis DNA PCR NOT DETECTED Nasal C.pneumoniae (PCR) NOT DETECTED [place] Human Metapneumo PCR NOT DETECTED Nasal M.pneumoniae (PCR) NOT DETECTED Nasal SARS-CoV-2 (PCR) NOT DETECTED PD MEDICAL DECISION MAKING - ED course Complexity details: reviewed old records ED course: 76yM presented with n/v and BL flank pain, found to have negative workup on labs, ekg, cxr, ct aside from small bowel inflammation/thickening and concern for SBO. Clinically patient is passing normal flatus, had normal BM recently and is low risk for bowel obstruction. Likely viral gastroenteritis. Given he is afebrile and has had short course of symptoms I am holding antibiotics for now and providing strict return precautions. Plan to f/u with PMD. Departure - Departure Disposition: 01 Home, Self Care Clinical Impression: Vomiting, Abdominal pain, Back pain Condition: Stable Instructions: Diet Clear Liquid Dc, ED Nausea Vomiting Prescriptions: Ondansetron Odt [Zofran Odt] 4 mg TL Q6H PRN #10 tablet PRN Reason: Nausea / Vomiting Comments: You were seen in the ED for evaluation of back pain, vomiting, and abdominal pain. You also had chest pain while here in the ED. Your blood tests showed no emergent cause for your condition. Your EKG did not show a heart attack. Your CT scans showed inflammation in the intestinal area, so you may have a stomach virus. Please return to the ED if you start to have fever with temp >100.4, new or worsening symptoms or other concerns. Plan to follow up with your doctor this week. Discharge Date/Time: 10/24/21 02:36
[2021-10-23 23:54] LABS: B. PARAPERTUSSIS- RESP PCR PAN NOT DETECTED; B. PERTUSSIS- RESP PCR PANEL NOT DETECTED; C. PNEUMONIAE- RESP PCR PANEL NOT DETECTED; CORONAVIRUS 229E-RESP PCR NOT DETECTED; CORONAVIRUS HKU1-RESP PCR NOT DETECTED; CORONAVIRUS NL63-RESP PCR NOT DETECTED; CORONAVIRUS OC43-RESP PCR NOT DETECTED; HUMAN METAPNEUMOVIRUS NOT DETECTED; INFLUENZA A- RESP PCR PANEL NOT DETECTED; INFLUENZA B - RESP PCR PANEL NOT DETECTED; M. PNEUMONIAE- RESP PCR PANEL NOT DETECTED; PARAINFLUENZA VIRUS 1 NOT DETECTED; PARAINFLUENZA VIRUS 2 NOT DETECTED; PARAINFLUENZA VIRUS 3 NOT DETECTED; PARAINFLUENZA VIRUS 4 NOT DETECTED; RHINOVIRUS/ENTEROVIRUS NOT DETECTED; RSV- RESP PCR PANEL NOT DETECTED; SARS-CoV-2 -RESP PCR PANEL NOT DETECTED
[2021-10-24] MEDS ORDERED: ONDANSETRON 4 MG/2 ML VIAL IVP STA (01:34)
[2021-10-24] MEDS ORDERED: ACETAMINOPHEN 325 MG TABLET PO STA (01:35)
[2021-10-24 02:16] VITALS: BP 141/81
== END 2021-10-24 02:36 | disposition home or self-care (01) ==
LOC: ED 21:00
DX: R11.10 Vomiting, unspecified (principal); R10.9 Unspecified abdominal pain; M54.9 Dorsalgia, unspecified; Z20.822 Contact with and (suspected) exposure to COVID-19
CPT/HCPCS: 36415; 71045; 80053; 81003; 83690; 84484; 85025; 87631; 93005; 96374; 96375; 96376; 99284; A9270; 0202U; 81001; 87086

== ENCOUNTER 2021-10-24 07:06 | Outpatient (CLI) | payer MEDICARE | END 2021-10-24 07:07 | disposition E | LOC: EMS 07:06 ==